=== PATIENT | male | born 1955 | race Caucasian/White ===

== ENCOUNTER → 2022-08-04 11:00 | Outpatient (CLI) | payer MEDICARE, SELFPAY ==
[2022-08-04 19:07] LABS: Basophils # 0.1 K/mm3 (0-0.2); Basophils % 0.7 % (0.1-2.0); Eosinophils # 0.1 K/mm3 (0.0-0.4); Eosinophils % 1.2 % (0.1-12.0); Hematocrit 50.3 % (42.0-52.0); Hemoglobin 16.6 g/dL (14.1-18.0); Lymphocytes # 2.7 K/mm3 (0.7-4.5); Lymphocytes % 37.2 % (10-50); Mean Corpuscular HGB Conc 32.9 g/dL (31.8-35.4); Mean Corpuscular Hemoglobin 32.6 pg (27.0-31.2); Mean Platelet Volume 9.7 fl (7.4-10.4); Monocytes # 0.5 K/mm3 (0.1-1.0); Monocytes % 7.1 % (1.7-9.3); Neutrophils # 3.9 K/mm3 (1.8-7.8); Neutrophils % 53.8 % (37.0-80.0); Platelet Count 237 K/mm3 (142-424); Red Blood Count 5.08 M/mm3 (4.60-6.20); Red Cell Distribution Width 13.6 % (11.5-17.5); White Blood Count 7.2 K/mm3 (4.8-10.8)
[2022-08-04 19:29] LABS: Alanine Aminotransferase 61 U/L (12-78); Albumin Level 4.7 g/dl (3.5-5.0); Alkaline Phosphatase 83 U/L (38-126); Anion Gap 13.5 mEq/L (5-15); Aspartate Amino Transferase 50 U/L (17-59); Bilirubin,Total 0.5 mg/dl (0.2-1.3); Blood Urea Nitrogen 16 mg/dl (9-20); Calcium 9.4 mg/dl (8.4-10.2); Carbon Dioxide 26 mmol/L (22.0-30.0); Chloride 104 mmol/L (98-107); Chol/HDL Ratio 4.6 (1-3.5); Cholesterol 181 mg/dl (140-200); Estimated Glomerular Filt Rate 97 ml/min (>60); GFR (African American) 117 ML/MIN (>60); Globulin 2.3 g/dL (1.3-3.2); Glucose 93 mg/dl (74-100); HDL Cholesterol 39 mg/dl (40-60); Potassium 4.5 mmoL/L (3.5-5.1); Sodium 139 mmol/L (136-145); Triglycerides 210 mg/dl (30-150); VLDL Cholesterol 42 mg/dL (0-40)
[2022-08-04 19:37] LABS: Microalbumin/Creatinine Ratio 12.8
[2022-08-04 19:40] LABS: Creatinine,Urine Random 204 mg/dL (Not Estab.); Direct LDL Cholesterol 119.19 mg/dL (100-129)
[2022-08-04 19:58] LABS: Hemoglobin A1C 5.6 % (4.0-6.0)
[2022-08-04 20:03] LABS: Prostate Specific Ag Screen 1.4 ng/ml (0.0-4.0); Thyroid Stimulating Hormone 0.94 uIU/mL (0.465-4.68)
== END ==
PROVIDERS: PCP Nurse Practitioner; Visit Provider Nurse Practitioner
DX: E78.5 Hyperlipidemia, unspecified (principal); I10 Essential (primary) hypertension; R55 Syncope and collapse; R73.9 Hyperglycemia, unspecified; Z12.5 Encounter for screening for malignant neoplasm of prostate; R42 Dizziness and giddiness
CPT/HCPCS: 80053; 80061; 82043; 82570; 83036; 84443; 85025; G0103

== ENCOUNTER → 2022-08-18 12:52 | Outpatient (CLI) | payer MEDICARE, SELFPAY ==
--- NOTE | 2022-08-18 12:43 | ECG_ITS ---
APPROVED REPORT Exam: Resting ECG HR:81 bpm ECG Measurements Heart Rate 81 AXES MT 167 P 74 QRSd 83 QRS 60 QT 370 T 69 QTc 407 Conclusion SINUS RHYTHM WITH SINUS ARRHYTHMIA POSSIBLE LEFT ATRIAL ENLARGEMENT [-0.1mV P-WAVE IN V1/V2] BORDERLINE ECG UNCONFIRMED REPORT Electronically signed by : Micheal Cesar MD 08/19/2022 02:51:28
--- NOTE | 2022-08-18 12:54 | CA_ITS ---
APPROVED REPORT EXAM: Comprehensive 2D, Doppler, and color-flow Echocardiogram Contract Admin: Carla Hardin RT(R) Ht: 5 ft 9 in Wt: 165lbs BSA: 1.90 BP: 134/84 mmHg Indications: Smoker, HTN, syncope, hyperlipidemia, dizziness 2D Dimensions LVOT 2.15 cm (M/F) 1.5-2.5 LVEF (Sheehan's) 65.60 % M: 52 - 72 LV Volume 57.60 mL M: 62 - 150 LV Volume Index 30.16 mL/m2 M: 34 - 74 M-Mode Dimensions RVDd 2.35 cm (0.9-2.6) LA Diam 2.83 cm (1.9-4.0) LVDd 2.25 cm (3.5-5.7) Ao Diam 2.51 cm (2.0-3.7) LVDs 1.68 cm (3.5-5.7) IVSd 0.82 cm (0.6-1.1) PWd 0.71 cm (0.6-1.1) EF (Teich) 52.60% FS 25.30% EDV (Teich) 17.10 mL ESV (Teich) 8.10 mL LV Diastology E Decel Time 193.00 (160-240 msec) E/A Ratio 0.7 MED E' 6.80 (< 7 cm/sec) E'/MED E' Ratio 11.24 (>14) LAT E' 8.00 (<10 cm/sec) E/LAT E' Ratio 9.55 (>14) Mitral Valve MV E Max Chris. 76.00 (40-130 cm/s) MV A Velocity 102.00 (40-130 cm/s) E/A Ratio 0.75 MV Decel. Time 193.00 (160-240 ms) MV PHT 57.00 ms Left Ventricle Left atrium is mildly enlarged, left ventricle is normal size mild concentric left ventricular hypertrophy, estimated ejection fraction 55% with no regional wall motion abnormality, grade 1 diastolic dysfunction seen without tissue Doppler evidence of raise left atrial pressure. Right Ventricle Right atrium and right ventricle are normal size and contractility. Aortic Valve Aortic valve is minimally thickened and fibrosed there is no aortic stenosis or aortic insufficiency. Mitral Valve Mitral valve is grossly normal, there is no mitral stenosis, there is trace mitral regurgitation. Tricuspid Valve Tricuspid grossly normal, there is trace tricuspid regurgitation, tricuspid regurgitation jet velocity is inadequate for calculation of the right ventricular systolic pressure. Pulmonic Valve Pulmonic valve is poorly visualized. Great Vessels Aortic root normal size. Inferior vena cava normal size with normal inspiratory collapse. Pericardium No significant pericardial effusion noted. Conclusion 1. Normal left ventricular size, estimated ejection fraction 55% with no regional wall motion abnormality, grade 1 diastolic dysfunction seen without tissue Doppler evidence of late left atrial pressure. 2. Trace mitral and tricuspid regurgitation. 3. No significant pericardial effusion noted 4. Inferior vena cava is normal size with normal inspiratory collapse. Electronically signed by : Brendan Rangel MD 08/18/2022 17:15:44
--- NOTE | 2022-08-18 13:37 | XR_ITS ---
FINAL REPORT CLINICAL HISTORY: syncope FINDINGS: PA and lateral views of the chest are obtained. There is no prior exam for comparison. The cardiac and mediastinal silhouettes are within normal limits. The lungs are clear. There is no pleural effusion, pneumothorax, or acute osseous abnormality. IMPRESSION: No radiographic evidence of acute cardiac or pulmonary disease. Reviewed, Interpreted and Dictated by Velvet Arias MD Transcribed by Rocio Major Authenticated and [facility]
== END ==
PROVIDERS: PCP Nurse Practitioner; Visit Provider Nurse Practitioner
DX: R55 Syncope and collapse
CPT/HCPCS: 71046; 93005; 93306

== ENCOUNTER 2023-12-08 09:21 | Outpatient (CLI) | payer MEDICARE, SELFPAY ==
[2023-12-08 18:39] LABS: Basophils # 0.1 K/mm3 (0-0.2); Basophils % 0.8 % (0.1-2.0); Eosinophils # 0.1 K/mm3 (0.0-0.4); Eosinophils % 1.8 % (0.1-12.0); Hemoglobin 17.6 g/dL (14.1-18.0); Lymphocytes % 42.5 % (10-50); Mean Corpuscular HGB Conc 33.2 g/dL (31.8-35.4); Mean Corpuscular Hemoglobin 33.7 pg (27.0-31.2); Mean Corpuscular Volume 101.5 fl (80-94); Mean Platelet Volume 10.7 fl (7.4-10.4); Monocytes # 0.5 K/mm3 (0.1-1.0); Monocytes % 6.6 % (1.7-9.3); Neutrophils # 3.4 K/mm3 (1.8-7.8); Neutrophils % 48.3 % (37.0-80.0); Platelet Count 174 K/mm3 (142-424); Red Blood Count 5.22 M/mm3 (4.60-6.20); Red Cell Distribution Width 13.7 % (11.5-17.5)
[2023-12-08 18:43] LABS: Chloride 106 mmol/L (98-107); Potassium 4.4 mmoL/L (3.5-5.1); Sodium 142 mmol/L (136-145)
[2023-12-08 18:45] LABS: Alanine Aminotransferase 43 U/L (12-78); Alkaline Phosphatase 72 U/L (38-126); Aspartate Amino Transferase 39 U/L (17-59); Bilirubin,Total 0.4 mg/dl (0.2-1.3); Blood Urea Nitrogen 12 mg/dl (9-20); Estimated Glomerular Filt Rate 97 ml/min (>60); GFR (African American) 117 ML/MIN (>60)
[2023-12-08 18:46] LABS: Albumin Level 4.5 g/dl (3.5-5.0); Albumin/Globulin Ratio 1.6 (1.1-1.8); Anion Gap 11.4 mEq/L (5-15); Calcium 10.2 mg/dl (8.4-10.2); Carbon Dioxide 29 mmol/L (22.0-30.0); Cholesterol 182 mg/dl (140-200); Globulin 2.8 g/dL (1.3-3.2); Glucose 107 mg/dl (74-100); HDL Cholesterol 45 mg/dl (40-60); Total Protein,Serum 7.3 g/dl (6.3-8.2); Triglycerides 135 mg/dl (30-150); VLDL Cholesterol 27 mg/dL (0-40)
[2023-12-08 18:57] LABS: Direct LDL Cholesterol 119.05 mg/dL (100-129)
[2023-12-08 19:58] LABS: Prostate Specific Ag Screen 1.5 ng/ml (0.0-4.0)
== END 2023-12-08 23:59 | disposition home or self-care (01) ==
LOC: LAB.DROPOF 12-11 10:29
PROVIDERS: PCP Family Medicine; Visit Provider Family Medicine
DX: Z00.00 Encounter for general adult medical examination without abnormal findings (principal); D72.829 Elevated white blood cell count, unspecified; E75.5 Other lipid storage disorders; Z12.5 Encounter for screening for malignant neoplasm of prostate
CPT/HCPCS: 80053; 80061; 85025; G0103

== ENCOUNTER 2024-10-25 10:25 | Outpatient (CLI) | payer MEDICARE, SELFPAY ==
[2024-10-25 17:50] LABS: Basophils % 0.4 % (0.1-2.0); Eosinophils # 0.1 Kmm3 (0.0-0.4); Hematocrit 48.8 % (42.0-52.0); Immature Granulocytes # 0.01 10^3uL; Immature Granulocytes % 0.1 %; Lymphocytes # 2.3 K/mm3 (0.7-4.5); Lymphocytes % 32.8 % (10-50); Mean Corpuscular HGB Conc 34.8 g/dL (31.8-35.4); Mean Corpuscular Hemoglobin 33.5 pg (27.0-31.2); Mean Corpuscular Volume 96.1 fl (80-94); Mean Platelet Volume 11.1 fl (7.4-10.4); Monocytes # 0.5 K/mm3 (0.1-1.0); Monocytes % 7.6 % (1.7-9.3); Neutrophils % 58.1 % (37.0-80.0); Nucleated Red Blood Cells # 0 10^3/uL; Nucleated Red Blood Cells % 0 %; Platelet Count 181 K/mm3 (142-424); Red Blood Count 5.08 M/mm3 (4.60-6.20); Red Cell Distribution Width-SD 46.7 fL; White Blood Count 6.9 K/mm3 (4.8-10.8)
[2024-10-25 18:28] LABS: Alanine Aminotransferase 31 U/L (12-78); Albumin Level 4.6 g/dl (3.5-5.0); Albumin/Globulin Ratio 1.8 (1.1-1.8); Alkaline Phosphatase 75 U/L (38-126); Anion Gap 9.3 mEq/L (5-15); Aspartate Amino Transferase 32 U/L (17-59); Bilirubin,Total 0.6 mg/dl (0.2-1.3); Blood Urea Nitrogen 11 mg/dl (9-20); Calcium 9.9 mg/dl (8.4-10.2); Carbon Dioxide 26 mmol/L (22.0-30.0); Chloride 106 mmol/L (98-107); Chol/HDL Ratio 4.2 (1-3.5); Cholesterol 161 mg/dl (140-200); Estimated Glomerular Filt Rate 112 ml/min (>60); GFR (African American) 136 ML/MIN (>60); Globulin 2.5 g/dL (1.3-3.2); Glucose 116 mg/dl (74-100); HDL Cholesterol 38 mg/dl (40-60); Potassium 4.3 mmoL/L (3.5-5.1); Sodium 137 mmol/L (136-145); Total Protein,Serum 7.1 g/dl (6.3-8.2); Triglycerides 126 mg/dl (30-150); VLDL Cholesterol 25 mg/dL (0-40)
[2024-10-25 18:40] LABS: Direct LDL Cholesterol 103.31 mg/dL (100-129)
[2024-10-25 19:02] LABS: Prostate Specific Ag, Diagnost 1.69 ng/ml (0.0-4.0)
[2024-10-25 19:33] LABS: HIV Combo NEGATIVE (Negative)
[2024-10-25 19:41] LABS: Hepatitis C Ab Qual. W/ RFX NEGATIVE (Negative)
[2024-10-27 09:24] LABS: Hepatitis B Surface Antigen Negative (Negative)
--- OUTSIDE RECORDS SUMMARY | 2024-10-28 10:54 | XMS_ITS | Clinical Summary ---
Author Organization [facility] Address [address] [place] [id number] Care Team Providers Care Siebel Consultant Name Role Phone Pcp, No Primary Care Provider [phone] Source Comments This information has been disclosed to you from confidential records protectedfrom disclosure by state law. You shall make no further disclosure of thisinformation without the specific, written, and informed release of theindividual to whom it pertains, or as otherwise permitted by law. A generalauthorization for the release of medical or other information is not sufficientfor the purposes of therelease of HIV test results or diagnoses. [id number] Allergies No known active allergies Medications hydroCHLOROthia zide (MICROZIDE) 12.5 mg capsule Take 12.5 mg by mouth daily. Active lisinopriL (PRINIVIL) 10 MG tablet Take 10 mg by mouth daily. Active rosuvastatin (CRESTOR) 10 MG tablet Take 10 mg by mouth daily. 02/01/2021 Active acetaminophen (TYLENOL) 325 MG tablet Take 2 tablets (650 mg total) by mouth every 4 hours. 180 tablet 1 02/12/2021 5:35 PM EDT 02/12/2021 Active ibuprofen (MOTRIN) 200 MG tablet Take 2 tablets (400 mg total) by mouth every 4 hours. 180 tablet 1 02/12/2021 5:35 PM EDT 02/12/2021 Active senna-docusate (SENNA-S) 8.6-50 mg per tablet Take 1 tablet by mouth every 12 hours as needed for Constipation. 56 tablet 02/12/2021 5:35 PM EDT 02/12/2021 Active naloxone (NARCAN) 4 mg/actuation [employer] Apply 1 spray in one nostril if needed. Call 911. May repeat dose in other nostril if no response in 3 minutes. 2 each 02/12/2021 Active hydrOXYzine HCL (ATARAX) 10 MG tablet Take 1 tablet (10 mg total) by mouth 3 times a day as needed for Itching or Anxiety. 30 tablet 02/12/2021 5:35 PM EDT 02/12/2021 Active celecoxib (CELEBREX) 200 MG capsuleIndicati ons:Pain in pelvis Take 1 capsule (200 mg total) by mouth 2 times a day. 60 capsule 07/20/2021 Active Active Problems No known active problems Social History Tobacco Use Types Packs/Day Years Used Date Smoking Tobacco: Never Smokeless Tobacco: Never Alcohol Use Standard Drinks/Week Comments Yes 0 (1 standard drink = 0.6 oz pur e alcohol) AUDIT-C Answer Date Recorded Q1: How often do you have a drink containing alc ohol? 2-3 times a week 02/07/2021 Q2: How many drinks containi ng alcohol do you have on a typical day when you are drinking? 1 or 2 02/07/2021 Q3: How often do you have si x or more drinks on one occasion? Less than monthly 02/07/2021 Sex and Gender Information Value Date Recorded Sex Assigned at Male 02/10/2021 9:54 AM EDT Legal Sex Male 6:52 PM EST Gender Identity Male 02/10/2021 9:54 AM EDT Sexual Orientation Not on file Last Filed Vital Signs Vital Sign Reading Time Taken Comments Blood Pressure 149/86 02/12/2021 3:00 PM EDT Pulse 85 02/12/2021 3:00 PM EDT Temperature 36.9 C (98.5 F) 02/12/2021 3:00 PM EDT Respiratory Rate 16 02/12/2021 3:00 PM EDT Oxygen Saturation 96% 02/12/2021 3:00 PM EDT Inhaled Oxygen Concentration 96% 02/12/2021 3 :00 PM EDT Weight 72.6 kg (160 lb) 07/20/2021 2:12 PM EST Height 175.3 cm (5' 9 ) 01/25/2022 2:24 PM EDT Body Mass Index 23.63 07/20/2021 2:12 PM EST Plan of Treatment Health Maintenance Due Date Last Done Comments Abnormal Colonoscopy Follow Up 1957 Hepatitis C Screening (MyChart) 1957 Alcohol Misuse Screening 1975 Depression Screening 1975 Immunization: DTaP/Tdap/Td (1 - Tdap) 1976 Cologuard (FIT-DNA) 2002 Colonoscopy 2002 Colorectal Cancer Screening (MyChart) 2002 Stool Testing (gFOBT) 2002 Immunization: Pneumococcal (1 of 1 - PCV) 2007 Immunization: Zoster (1 of 2) 2007 Immunization: COVID-19 ( - season) 2024 Immunization: Influenza (MyChart) (Season Ended) 01/20 Immunization: RSV (Adult) (1 - 1-dose 75+ series) 08/2031 Medical Devices Implanted Type Area Elevator Repair Mechanic Device Identifier Shelf Expiration Date Model / Serial / Lot Plate Suprapectineal Lt Pro Bn Strl Lf - [id number] Implanted:Qty: 1 on 02/10/2021 by Dakota Ricardo MD at [facility] Main Plate Left: Hip YARELI [employer] 10/19/2025 [id number] / / [id number] Screw Bone Stainless Steel 2.5 Mm Full Thread L24 Mm Od3.5 Mm Cortex Self Tap Hexagonal Nonsterile Axsos Extremity Plate System Small Fragment Set - [id number] Implanted:Qty: 1 on 02/10/2021 by Dakota Ricardo MD at [facility] Main Screw Left: Hip YARELI [employer] [id number] / / TRAY Screw Bone Stainless Steel 2.5 Mm Full Thread L34 Mm Od3.5 Mm Cortex Self Tap Hexagonal Nonsterile Axsos Extremity Plate System Small Fragment Set - [id number] Implanted:Qty: 1 on 02/10/2021 by Dakota Ricardo MD at [facility] Main Screw Left: Hip YARELI [employer] [id number] / / TRAY Screw Bone Stainless Steel L44 Mm Od3.5 Mm Odsec2.5 Mm Cortical Self Tap Hex Nonsterile Axsos Small Fragment Set Extremity Plate System - [id number] Implanted:Qty: 1 on 02/10/2021 by Dakota Ricardo MD at [facility] Main Screw Left: Hip YARELI [employer] [id number] / / TRAY Screw Bone Stainless Steel 2.5 Mm Full Thread L70 Mm Od3.5 Mm Cortex Self Tap Hexagonal Nonsterile Axsos Extremity Plate System Small Fragment Set - [id number] Implanted:Qty: 1 on 02/10/2021 by Dakota Ricardo MD at [facility] Main Screw Left: Hip YARELI [employer] [id number] / / TRAY Screw Bone Stainless Steel 2.5 Mm Full Thread L40 Mm Od3.5 Mm Cortex Self Tap Hexagonal Nonsterile Axsos Extremity Plate System Small Fragment Set - [id number] Implanted:Qty: 1 on 02/10/2021 by Dakota Ricardo MD at [facility] Main Screw Left: Hip YARELI [employer] [id number] / / TRAY Insurance [employer]UE [employer] Advance Directives For more information, please contact: [phone] * Full Code (Latest Code Status on File) Date Activated Date Inactivated Comments 02/07/2021 8:09 AM 02/12/2021 10:09 PM Care Teams Siebel Consultant Relationship Specialty Start Date End Date Pcp, No No Address PCP - General 02/07/21
--- OUTSIDE RECORDS SUMMARY | 2024-10-28 10:54 | XMS_ITS | Clinical Summary ---
Author Organization [facility] Address [address] [place] [address] Phone Care Team Providers Care Actuarial Consultant Name Role Phone Bora Correia Primary Care Provider [phone] Allergies No known active allergies Medications lisinopril (PRINIVIL;ZESTRI L) 10 mg Oral Tablet Take 10 mg by mouth daily. Active hydrochlorothiaz deb (MICROZIDE) 12.5 mg Oral CapsuleIndicatio ns:unsure of dosage Take 12.5 mg by mouth daily. Indications : unsure of dosage Active Medical History Medical History Date Comments Kidney stones Hypertension Social History Tobacco Use Types Packs/Day Years Used Date Smoking Tobacco: Every Day Cigarettes Smokeless Tobacco: Never Alcohol Use Standard Drinks/Week Comments Yes 42 (1 standard drink = 0.6 oz pu re alcohol) 6 Beers nightly Sexually Active Control Partners Comments Yes Female Sex and Gender Information Value Date Recorded Sex Assigned at Not on file Legal Sex Male 9:50 AM EDT Gender Identity Not on file Sexual Orientation Not on file Obstetrics History Last Filed Vital Signs Vital Sign Reading Time Taken Comments Blood Pressure 105/73 02/07/2021 3:57 AM EDT Pulse 111 02/07/2021 3:20 AM EDT Temperature 36.7 C (98.1 F) 02/06/2021 11:47 PM EDT Respiratory Rate 20 02/06/2021 11:47 PM EDT Oxygen Saturation 92% 02/07/2021 3:57 AM EDT Inhaled Oxygen Concentration - - Weight 74.8 kg (165 lb) 10/19/2021 11:13 AM EDT Height 175.3 cm (5' 9 ) 10/19/2021 11:13 AM EDT Body Mass Index 24.37 10/19/2021 11:13 AM EDT Plan of Treatment Health Maintenance Due Date Last Done Comments Annual Wellness Exam 1960 Hepatitis C Screening 1975 DTaP/TDaP/Td (1 - Tdap) 1976 Cologuard 2002 Colon Cancer Screening 2002 Colonoscopy 2002 FIT 2002 Sigmoidoscopy 2002 Virtual Colonography 2002 Pneumococcal Vaccine 50+ (1 of 1 - PCV) 2007 Zoster (1 of 2) 2007 COVID-19 Vaccine ( - 2023-2 5 season) 2024 Influenza Vaccine (Season Ended) 2025 Hepatitis B Vaccine Aged Out No longe r eligible based on patient's age to complete this topic Meningococcal B Vaccine Aged Out No l onger eligible based on patient's age to complete this topic Insurance [employer] PPO [facility] Care Teams Actuarial Consultant Relationship Specialty Start Date End Date Bora Correia [address] [place] [address] PCP - General Family Medicine 08/29/14
--- OUTSIDE RECORDS SUMMARY | 2024-10-28 10:54 | XMS_ITS ---
Author Organization Unknown TREATMENT PLAN [facility] Start Date Provider Encounter for Check-up [phone] [facility]
== END 2024-10-25 23:59 | disposition home or self-care (01) ==
LOC: LAB.DROPOF 10-28 10:50
PROVIDERS: PCP Family Medicine; Visit Provider Family Medicine
DX: E78.5 Hyperlipidemia, unspecified (principal); I10 Essential (primary) hypertension; N40.0 Benign prostatic hyperplasia without lower urinary tract symptoms; Z11.4 Encounter for screening for human immunodeficiency virus [HIV]
CPT/HCPCS: 80053; 80061; 84153; 85025; 86803; 87340; 87389